=== PATIENT | female | born 1960 | race Caucasian/White ===

== ENCOUNTER 2017-01-08 08:02 | Day surgery (SDC) | payer OTHER ==
[~2017-01-08] VITALS: Ht 165.1 cm; Wt 93.5 kg
[~2017-01-08 08:02] MED LIST: 5-HY100C2 PO; AZEL137S11 NS; CeFAZolin Inj 2 GM in IV Premix 1 EACH IV ONE; ESTR0.5T PO; IBUP200C PO; KETO10TA PO; LORA1TAB PO; Lactated Ringer's 1,000 ML IV ONE; MOME13HF2 IH; MULT-1018 PO; OMEP10CA4 PO; OXYC-466 PO; RES15 PO; RIZA10TA26 PO; SERT20OR6 PO
[2017-01-08] MEDS ORDERED: Lidocaine PF 1% 30 mL Inj ONE (08:03)
[2017-01-08] MEDS ORDERED: Ondansetron 2 mg/mL 2 mL Inj ONE (08:03)
[2017-01-08] MEDS ORDERED: Dexamethasone 4 mg/mL Inj ONE (08:03)
[2017-01-08] MEDS ORDERED: fentaNYL-PF 50 mCg/mL 2 mL Inj ONE (08:03)
[2017-01-08] MEDS ORDERED: Propofol 10,000 mCg/mL 20 mL Inj ONE (08:03)
[2017-01-08] MEDS ORDERED: CeFAZolin Inj 2 gm / 50mL D5W IV ONE (08:08)
[2017-01-08 08:25] VITALS: BP 131/79; PULSE 68; RESP 16; O2SAT 97
--- NOTE | 2017-01-08 09:43 | PCM.HPANE ---
Patient Data Date of Service: Jan 08, 2017 Surgeon Admitting Provider: Attending Provider:Leobardo Chiang DPM Primary Care Physician:Kunal Huerta MD Other Provider:Sin Smith Anesthesia Reason for Visit Left Foot Hallux Valgus Ht/WT & BMI Height (Feet): 5 Height (Inches): 5.00 Weight (Kilograms): 93.5 Body Mass Index 34.00 Allergies Coded Allergies: Sulfa (Sulfonamide Antibiotics) (Verified Allergy, Severe, HIVES,SKIN RASH , 01/06/17) morphine (Verified Allergy, Severe, HIVES, 01/06/17) Past Anesthesia History Anesthesia History: Denies:: Anesthesia Reactions, Malignant Hyperthermia Diabetes History Hx Diabetes?: No MRSA MRSA: No Medications Home Meds Incl Beta Lisset: No Reported Medications Ketorolac Tromethamine 10 Mg Kuxxoe09 Mg PO QID PRN PRN 30 Days POSTOP 01/06/17 oxyCODONE-Acetaminophen 10-325 mg 1 Each Tablet1 Tablet PO Q6H PRN For Pain Ref 0 POSTOP 01/06/17 Ibuprofen 200 Mg Axsqwsy040 Mg PO QID PRN For Pain Ref 0 01/06/17 Rizatriptan (Maxalt)10 Mg Qnkcvx31 Mg PO PRN 01/06/17 Lorazepam 1 Mg Tablet1 Mg PO HS PRN For Insomnia Ref 0 01/06/17 Azelastine HCl 137 Mcg/0.137 Ml [place].isng742 Mcg NS DAILY 01/06/17 Omeprazole 10 Mg Capsule.dr10 Mg PO DAILY Ref 0 01/06/17 5-Hydroxytryptophan (5-Htp)100 Mg Lvzykuz658 Mg PO DAILY 01/06/17 Multivitamin (Multi Vitamin Daily)1 Each Tablet1 Each PO DAILY 30 Days Ref 0 01/06/17 Estradiol 0.5 Mg Tablet0.5 Mg PO DAILY 01/06/17 Temazepam 15 Mg Khwnldn03 Mg PO HS PRN For Insomnia 30 Days Ref 0 01/06/17 Sertraline HCl (Sertraline)20 Mg/1 Ml Oral.plkj949 Mg PO DAILY #1 BOTTLE Ref 0 01/06/17 Mometasone/Formoterol (Dulera 100 Mcg/5 Mcg Inhaler)13 Gm Hfa.aer.ad2 Puffs IH BID 01/06/17 History History of ENT Problems?: Yes HEENT History: Positive for:: Sinus Problem (SINUSITIS) Hx of Heart Problems?: Yes Cardiovascular History: Positive for:: Chest Pain (09/2004 ??ETIOLOGY) Denies:: Heart Murmur Hypertension Hx of Respiratory Problem?: Yes Respiratory History: Positive for:: Asthma Dyspnea (PETER) Use of C-PAP Machine (LALA+ DOESN'T USE CPAP SLEEP STUDY 05/2012) Use of Inhalers / NEBS Denies:: Chest Surgery (HX PULMONARY NOIDULE) Hx Neurologic Problems?: Yes Neurological History: Positive for:: Headaches Other Neurological Pertinent: PLMD,RLS Hx of GI Problems?: Yes Gastrointestinal History: Positive for:: Gastroesphageal Reflux Denies:: Rectal Bleeding (HX COLON POLYPS) Hx of Problems?: No Female Hx: Denies:: Currently Skin History: Positive for:: 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) Denies:: Pressure Ulcers Hx Musculoskeletal Problems?: Yes Musculoskeletal History: Positive for:: Musculoskeletal Trauma (C/OF LT SHOULDER PAIN) Denies:: Back Injury (C/OF LOWER BACK PAIN) Hx of Psycho/Social Problems?: Yes Psycho Social History: Positive for:: Anxiety Hx Depression Hx Surgeries?: Yes (HYST) Hx Any Other Health Problems?: Yes Other History: Denies:: Cancer Endocrine Disease Hospitalization Thyroid Disease Hx Diabetes: No Have You Smoked inLast 12 mo: No Stop/Bang Treated for Sleep Apnea?: No Do You Have a CPAP Machine?: No S-Snoring: Do You Snore Loudly: Yes T-Tired: feel tired, fatigued: Yes O-Obsered: Observed not breath: No P-Blood Pressure: treated: No B- Body Mass Index > 35 kg/m2: No A- Age over 50: Yes N- Neck Large Circumference: No G- Gender Male: No LALA Total Score: 3 LALA Risk Assessment: High Risk, =/>3 Yes Risk Assessment Category Category 1A: Patient has history of documented sleep apnea, and HAS NOT received any narcotic, sedative or anesthesia administration during this stay. Category 1B: Patient has history of documented sleep apnea, and HAS received any narcotic , sedative or anesthesia administration during this stay Category 2: Patient has SUSPECTED Obstructive Sleep Apnea, and HAS received any narcotic , sedative or anesthesia administration during this stay. Category 3: Patient has SUSPECTED Obstructive Sleep Apnea and HAS NOT received narcotic, sedative or anesthesia administration during this stay. Category 4: Outpatient in Procedural Areas with known sleep apnea or who screen positive for High Risk via the STOP/BANG questionnaire. Exam Exam Vital Signs Vital Signs Date Time Temp Pulse Resp B/P Pulse Ox O2 Delivery O2 Flow Rate FiO2 01/08/17 08:25 36.4 68 16 131/79 97 Room Air General Appearance: Alert, Oriented X3, Cooperative, No Acute Distress HEENT/AIRWAY: MP 2 Lungs: Normal Air Movement Heart: Exam Unremarkable Meds/Labs/Diagnostics Admission Meds Current Medications Lactated Ringer's (Lr) 1,000 ml @ 120 mls/hr Q8H20M ONCE IV Last administered on 01/08/17t 08:05; Start 01/08/17 at 07:55; Stop 01/08/17 at 16:14 Plan Impression Patient chart reviewed, patient interviewed and anesthestic plan with risks, benefits, and alternatives discussed, and informed consent obtained. NPO Status: 01/07 at 1999 ASA Physical Status: ASA2 Mod Systemic Disease Anesthetic Plan: GA Bene/Risks/Altern/Consents: Yes HP Complete Prior to Induction: Yes Luis Miguel Larkin MD Jan 08, 2017 08:37
[2017-01-08] MEDS ORDERED: Bupivacaine-MPF 0.5% 30 mL Inj INFILTRATE ONE (10:45)
[2017-01-08] MEDS ORDERED: Bacitracin Ointment Packet TOPICAL ONE (12:10)
[2017-01-08] MEDS ORDERED: Lactated Ringer's 500 ML IV PRN (12:12)
[2017-01-08] MEDS ORDERED: Lactated Ringer's 1,000 ML IV SCH (12:12)
[2017-01-08] MEDS ORDERED: HYDROmorphone 1 mg/mL Inj IVPUSH PRN (12:15)
[2017-01-08] MEDS ORDERED: MetoCLOpramide 5 mg/mL 2 mL Inj IVPUSH PRN (12:15)
[2017-01-08] MEDS ORDERED: Ondansetron 2 mg/mL 2 mL Inj IVPUSH PRN (12:15)
[2017-01-08] MEDS ORDERED: Dexamethasone 4 mg/mL Inj IVPUSH PRN (12:15)
[2017-01-08] MEDS ORDERED: fentaNYL-PF 50 mCg/mL 2 mL Inj IVPUSH PRN (12:15)
[2017-01-08] MEDS ORDERED: EPHEDrine Sulfate 50 mg/mL Inj IVPUSH PRN (12:15)
[2017-01-08] MEDS ORDERED: Atropine 0.4 mg/mL Inj IVPUSH PRN (12:15)
[2017-01-08] MEDS ORDERED: Labetalol 5 mg/mL 4 mL Inj IV PRN (12:15)
[2017-01-08] MEDS ORDERED: Phenylephrine 10,000 mCg/mL Inj IVPUSH PRN (12:15)
[2017-01-08] MEDS ORDERED: Albuterol-Ipratropium 3 mL Inhalation Solution NEB PRN (12:15)
[2017-01-08 12:23] VITALS: BP 137/79; PULSE 84; RESP 15; O2SAT 97
--- NOTE | 2017-01-08 12:27 | PCM.ANEP1 ---
Post Anesthesia Phase 1 PACU Phase 1 Assessment Date of Service: Jan 08, 2017 Vital Signs Vital Signs Date Time Temp Pulse Resp B/P Pulse Ox O2 Delivery O2 Flow Rate FiO2 01/08/17 08:25 36.4 68 16 131/79 97 Room Air Anesthetic Administered: GA Level of Alertness: Awake, talking JOVEL's with Equal Strength: Yes Pain: No Nausea or Vomiting: No Oxygen Delivery: Nasal Cannula Lungs: Normal Air Movement Luis Miguel Larkin MD Jan 08, 2017 12:27
--- NOTE | 2017-01-08 12:28 | PCM.ANEP2 ---
Post Anesthesia Evaluation ASA/CMS Post Anesthesia Date of Service: Jan 08, 2017 VS in Patient's Normal Range?: Yes Resp Stable; Airway Patent?: Yes CV Function & Hydration Stable: Yes Mental Status Recovered?: Yes Pain control Satisfactory?: Yes N/V Control Satisfactory?: Yes Luis Miguel Larkin MD Jan 08, 2017 12:28
[2017-01-08 12:30] VITALS: BP 138/70; PULSE 80; RESP 16; O2SAT 97
[2017-01-08] MEDS ORDERED: oxyCODONE-Acetamin 5-325 mg Tablet PO PRN (12:30)
[2017-01-08 12:40] VITALS: BP 124/70; PULSE 76; RESP 14; O2SAT 97
--- NOTE | 2017-01-08 12:42 | PCM.PODPO ---
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 Upon initiation of general anesthesia by the anesthesiologist the left forefoot was anesthetized utilizing approximately 15 cc 0.5% Marcaine plain. A well-padded tourniquet was applied at the ankle and the foot prepped and draped in the usual aseptic manner. Exsanguination was achieved utilizing an Esmarch bandage, the cuff was inflated and attention directed to the medial first metatarsophalangeal joint where an approximately 5 cm curvilinear incision was made. This incision was deepened via sharp and blunt dissection with care taken to cauterize superficial vessels. A curvilinear periosteal and capsular incision was made exposing the hypertrophic medial eminence of the first metatarsal head which was conservatively resected. A lateral capsular release was performed with a #67 blade through the joint. Next a medial to lateral Chevron shaped osteotomy was performed in the first metatarsal head and neck with the apex oriented distally. The fragment was displaced laterally 4-5 mm impacted and fixated utilizing 2.0 cortical screws obviate electric technique with good distal screw purchase and compression of the osteotomy noted. The remaining medial bony shelf was remodeled as well as the dorsal medial aspect of the first metatarsal head the site was copiously irrigated, medial capsulorrhaphy performed with 3-0 Vicryl subcutaneous tissues closed with 4-0 Vicryl and skin with 4-0 Prolene. The forefoot was loaded hallux was functioning in rectus alignment with no varus tendency in full sagittal plane range of motion. Attention was then directed to the DIPJ's of the second and third digits. 1 cm linear longitudinal incision was made overlying the DIPJ of the second digit. The incision was deepened and using skin retraction a transverse tenotomy capsulotomy was performed. The articular surface of the DIPJ was resected with apparent instrumentation and fixation was achieved utilizing an axial a 2.0 cortical screw via lag technique with good compression of the arthrodesis site and digital alignment noted. A screw was inserted through a small stab incision made transversely at the distal toe and care was taken to subside the screw head sufficient to prevent irritation. This procedure was then performed at the third DIPJ with similar operative results. Attention was then directed to the fourth digit. A 2 mm transverse stab incision was made just distal to the distal sulcus and the long flexor tendon was tenotomized. This provided significant relief of the reducible flexion contracture. Attention was then directed to the fifth digit where a dorsal linear 1.5 cm incision was made and deepened via sharp dissection. A dorsal tenotomy and capsulotomy was performed at the PIPJ and the head of the proximal phalanx was resected. At this time all incisions were irrigated and extensor tendons repaired utilizing 4-0 Vicryl second third and fifth digits and subcutaneous and skin closure achieved utilizing 4. 0 Prolene. The tourniquet was released normal perfusion returned promptly to all digits. Mild bleeding was stayed with several minutes direct pressure. Additional local anesthetic was infiltrated consisting of 4 cc of 0.5% Marcaine plain. Antibiotic ointment and Adaptic dressing and mildly compressive bandage applied to all sites. The patient was extubated uneventfully and left the operating suite in apparently satisfactory condition. There were no complications. Postoperative fluoroscopic exam showed good digital alignment and fixation hardware placement. Grafts, Implants: Implants-See Implant Record Complications There were no periprocedural complications identified. Condition Stable Anesthetic Administered: GA Drains: None Catheters: None Output, Estimated Blood Loss: 5 Blood Admin during surgery: No Surgical Cast or Splint: Post-op Boot Surgical Specimen Removed: No Specimen sent to Pathology: No Post Operative Plan Postop instructions have been reviewed and patient will be seen in the clinic in 5 days for follow-up. Leobardo Chiang DPM Jan 08, 2017 12:42
[2017-01-08 13:00] VITALS: BP 129/73; PULSE 78; RESP 16; O2SAT 95
== END 2017-01-08 23:59 | disposition home or self-care (01) ==
LOC: SAS 08:02
PROVIDERS: ATTEND Podiatrist
DX: M20.12 Hallux valgus (acquired), left foot (principal); M20.5X2 Other deformities of toe(s) (acquired), left foot; J45.909 Unspecified asthma, uncomplicated; R51 Headache; K21.9 Gastro-esophageal reflux disease without esophagitis; F41.9 Anxiety disorder, unspecified; F32.9 Major depressive disorder, single episode, unspecified; Z79.899 Other long term (current) drug therapy
CPT/HCPCS: 28232; 28285; 28291; 28296; J0690; J1100; J1885; J2250; J2405; J3010; J7120